=== PATIENT | female | born 1990 | race Caucasian/White ===

== ENCOUNTER 2018-08-24 14:41 | Emergency (ER) | payer OTHER, BC ==
[~2018-08-24] VITALS: Ht 152.4 cm; Wt 84.4 kg
--- OUTSIDE RECORDS SUMMARY | 2018-08-24 14:48 | XMS REPORT | Continuity of Care Document ---
Author Organization Unknown Address Unknown Allergies Active Description Code Type Severity Reaction Onset Reported/Identified Relationship to Patient Clinical Status Yes NO KNOWN DRUG ALLERGIES UNKNOWN NO KNOWN DRUG ALLERG Medications There is no data. Problems Date Dx Coded Attending Type Code Diagnosis Diagnosed By 12/23/2016 Cinda Deng W 272.4 OTHER AND UNSPECIFIED HYPERLIPIDEMIA 12/23/2016 Ish, Cinda W E78.5 HYPERLIPIDEMIA, UNSPECIFIED 12/23/2016 Ish, Cinda W 272.4 OTHER AND UNSPECIFIED HYPERLIPIDEMIA 12/23/2016 Ish, Cinda W E78.5 HYPERLIPIDEMIA, UNSPECIFIED 06/04/2017 Ish, Cinda W 256.4 POLYCYSTIC OVARIES 06/04/2017 Ish, Cinda W 272.4 OTHER AND UNSPECIFIED HYPERLIPIDEMIA 06/04/2017 Ish, Cinda W E28.2 POLYCYSTIC OVARIAN SYNDROME 06/04/2017 Ish, Cinda W E78.5 HYPERLIPIDEMIA, UNSPECIFIED 06/04/2017 Ish, Cinda W 256.4 POLYCYSTIC OVARIES 06/04/2017 Ish, Cnida W 272.4 OTHER AND UNSPECIFIED HYPERLIPIDEMIA 06/04/2017 Ish, Cinda W E28.2 POLYCYSTIC OVARIAN SYNDROME 06/04/2017 Ish, Cinda W E78.5 HYPERLIPIDEMIA, UNSPECIFIED 12/09/2017 Ish, Cinda W 272.4 OTHER AND UNSPECIFIED HYPERLIPIDEMIA 12/09/2017 Ish, Cinda W E78.5 HYPERLIPIDEMIA, UNSPECIFIED 12/09/2017 Ish, Cinda W 272.4 OTHER AND UNSPECIFIED HYPERLIPIDEMIA 12/09/2017 Ish, Cinda W E78.5 HYPERLIPIDEMIA, UNSPECIFIED Procedures There is no data. Results Test Result Range Comprehensive Metabolic Panel - 03/10/16 13:40 Albumin 4.3 g/dL 3.6-5.1 ALP 81 U/L 35-130 ALT 20 U/L 6-45 Anion Gap 19 6-14 AST 12 U/L 2-40 BUN 7 mg/dL 5-25 Calcium 9.6 mg/dL 8.3-10.4 Chloride 105 mmol/L 95-114 CO2 21 mEq/L 22-33 Creat 1.06 mg/dL 0.50-1.50 eGFR 62 mL/min/1.73m2 >59 Globulin 3.0 g/dL 2.3-3.5 Glucose 96 mg/dL 70-110 Osmo 291 280-295 Potassium 3.4 mmol/L 3.5-5.3 Sodium 142 mmol/L 134-148 TBil 0.6 mg/dL 0.2-1.2 TP 7.3 g/dL 6.0-8.3 Thyroid Stimulating Hormone - 03/10/16 13:40 TSH 3.18 mIU/mL 0.32-5.00 Urine Culture - 03/10/16 13:40 PRELIM CULTURE RESULTS 50,000-100,000 Coag Negative [id number] Further Workup Done MEDIA PLATED Setup at 14:21 on 03/10/2016 CULTURE SOURCE void CBC with Auto Diff - 03/18/16 15:53 Baso% 0.40 % 0.00-2.50 Eos 0.2 K/uL 0.0-0.7 Eos% 1.1 % 0.0-7.0 Hct 43.4 % 36.0-46.0 Hgb 14.3 g/dL 13.0-15.0 Lym 3.43 K/uL 0.60-3.40 Lym% 24.8 % 10.0-50.0 MCH 29.7 pg 27.0-31.0 MCHC 32.9 g/dL 32.0-36.0 MCV 90.2 fL 80.0-97.0 [place]% 5.4 % 0.0-12.0 MPV 9.4 fL 7.4-10.0 Amelia% 68.3 % 37.0-80.0 Plt 315 K/uL 150-400 RBC 4.81 M/uL 3.60-5.00 RDW 13.8 % 11.6-14.8 WBC 13.85 K/uL 5.00-10.00 Amelia 9.47 K/uL 2.00-6.90 [place] 0.8 K/uL 0.0-0.9 Baso 0.1 K/uL 0.0-0.2 Comprehensive Metabolic Panel - 12/23/16 11:17 Albumin 3.8 g/dL 3.6-5.1 ALP 87 U/L 35-130 ALT 19 U/L 6-45 Anion Gap 19 6-14 AST 15 U/L 2-40 BUN 7 mg/dL 5-25 Calcium 9.3 mg/dL 8.3-10.4 Chloride 106 mmol/L 95-114 CO2 20 mEq/L 22-33 Creat 0.80 mg/dL 0.50-1.50 eGFR 85 mL/min/1.73m2 >59 Globulin 2.5 g/dL 2.3-3.5 Glucose 86 mg/dL 70-110 Osmo 289 280-295 Potassium 3.6 mmol/L 3.5-5.3 Sodium 141 mmol/L 134-148 TBil 0.4 mg/dL 0.2-1.2 TP 6.3 g/dL 6.0-8.3 Thyroid Stimulating Hormone - 06/04/17 11:07 TSH 2.08 mIU/mL 0.32-5.00 Lipid Panel - 09/07/17 11:38 C/HDL 5.7 3.7-6.7 Cholesterol 232 mg/dL 100-240 HDL 41 mg/dL 30-85 LDL-Calculated 157 mg/dL 0-100 Trig 171 mg/dL 35-160 VLDL 34 mg/dL 0-42 Comprehensive Metabolic Panel - 12/09/17 10:41 Albumin 3.8 g/dL 3.6-5.1 ALP 99 U/L 35-130 ALT 30 U/L 6-45 Anion Gap 14 6-14 AST 23 U/L 2-40 BUN 12 mg/dL 5-25 Calcium 9.2 mg/dL 8.3-10.4 Chloride 107 mmol/L 95-114 CO2 22 mEq/L 22-33 Creat 0.82 mg/dL 0.50-1.50 eGFR 82 mL/min/1.73m2 >59 Globulin 3.1 g/dL 2.3-3.5 Glucose 102 mg/dL 70-110 Osmo 287 280-295 Potassium 4.2 mmol/L 3.5-5.3 Sodium 139 mmol/L 134-148 TBil 0.4 mg/dL 0.2-1.2 TP 6.9 g/dL 6.0-8.3 Lipid Panel - 12/09/17 10:41 C/HDL 4.0 3.7-6.7 Cholesterol 176 mg/dL 100-240 HDL 44 mg/dL 30-85 LDL-Calculated 104 mg/dL 0-100 Trig 141 mg/dL 35-160 VLDL 28 mg/dL 0-42 Comprehensive Metabolic Panel - 06/09/18 09:46 Albumin 4.0 g/dL 3.6-5.1 ALP 109 U/L 35-130 ALT 25 U/L 6-45 Anion Gap 15 6-14 AST 16 U/L 2-40 BUN 8 mg/dL 5-25 Calcium 9.5 mg/dL 8.3-10.4 Chloride 106 mmol/L 95-114 CO2 21 mEq/L 22-33 Creat 0.88 mg/dL 0.50-1.50 eGFR 76 mL/min/1.73m2 >59 Globulin 3.4 g/dL 2.3-3.5 Glucose 92 mg/dL 70-110 Osmo 285 280-295 Potassium 3.4 mmol/L 3.5-5.3 Sodium 139 mmol/L 134-148 TBil 0.4 mg/dL 0.2-1.2 TP 7.4 g/dL 6.0-8.3 Encounters ACCT No. Visit Date/Time Discharge Status Pt. Type Provider Facility Loc./Unit Complaint [id number] 06/09/2018 09:43:00 06/09/2018 23:59:[place] [facility] Deng [id number] 12/09/2017 10:32:00 12/09/2017 23:59:[place] [facility] [place] Rashid [id number] 09/07/2017 09:59:00 09/07/2017 23:59:00 [facility] Cinda Deng [id number] 06/04/2017 11:04:00 06/04/2017 23:59:[place] [facility] [place] Deng [id number] 12/23/2016 10:43:00 12/23/2016 23:59:00 [facility] [place] Deng [id number] 03/18/2016 15:50:00 03/18/2016 23:59:00 [facility] Cinda Deng [id number] 03/10/2016 13:36:00 03/10/2016 23:59:00 [facility] [place] C[place] Deng
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
[2018-08-24] MEDS ORDERED: TETANUS,DIPTH,PERTUSS P/F (BOOSTRIX) 0.5 ML VIAL IM ONE (15:00)
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
[2018-08-24 15:47] VITALS: BP 140/104
== END 2018-08-24 15:47 | disposition home or self-care (01) ==
LOC: EDUNIT# 14:41 → ER 14:44
DX: S40.811A Abrasion of right upper arm, initial encounter (principal); M79.621 Pain in right upper arm; E11.9 Type 2 diabetes mellitus without complications; J45.909 Unspecified asthma, uncomplicated; E78.00 Pure hypercholesterolemia, unspecified; F41.9 Anxiety disorder, unspecified; F32.9 Major depressive disorder, single episode, unspecified; Z23 Encounter for immunization; V47.6XXA Car passenger injured in collision with fixed or stationary object in traffic accident, initial encounter
CPT/HCPCS: 71045; 73030; 73060; 90471; 90715

== ENCOUNTER 2020-04-18 05:41 | Outpatient (RCR) | payer BC ==
[~2020-04-18] VITALS: Ht 152.4 cm; Wt 89.5 kg
[~2020-04-18 05:41] MED LIST: FEXO-46 PO; FLUO20CA46 PO; NORE-71 PO
== END 2020-04-19 09:55 | disposition home or self-care (01) ==
LOC: PREOP 05:41
PROVIDERS: ATTEND Specialist
DX: Z01.812 Encounter for preprocedural laboratory examination (principal); Z20.822 Contact with and (suspected) exposure to COVID-19
CPT/HCPCS: 87635

== ENCOUNTER 2020-04-20 09:42 | Day surgery (SDC) | payer BC, OTHER ==
[~2020-04-20] VITALS: Ht 152 cm; Wt 89.5 kg
[2020-04-20] MEDS ORDERED: LIDOCAINE PF 1% 2 ML VIAL IR PRN (10:00)
[2020-04-20] MEDS ORDERED: MOXIFLOXACIN OPHTH SOLN 5 MG/ML 0.3 ML SYRINGE OP ONE (10:00)
[2020-04-20] MEDS ORDERED: TIMOLOL MALEATE 0.5% 5 ML (TIMOPTIC) BTL OU PRN (10:00)
[2020-04-20] MEDS ORDERED: POVIDONE (BETADINE) OPHTH SOLN 5% 30 ML OP ONE (10:00)
[2020-04-20] MEDS: TETRACAINE 0.5% OPHTH SOLN 4 ML BTL (SINGLE DOSE ONLY) OU PRN ×4 (10:18→10:36)
[2020-04-20] MEDS: PHENYLEPHRINE 10% OPHTH (NEO-SYN) 5 ML BTL OU SCH ×3 (10:25→10:36)
[2020-04-20] MEDS: TROPICAMIDE 1% OPH SOLN (MYDRIACYL) 15 ML BTL OP SCH ×3 (10:25→10:36)
[2020-04-20 10:26] VITALS: BP 134/97
[2020-04-20] MEDS ORDERED: MIDAZOLAM 2 MG/2 ML (VERSED) VIAL ONE (10:33)
--- NOTE | 2020-04-20 10:50 | Ophthalmologist Pre-Op Note ---
Pre-Operative Progress Note H&P Reviewed The H&P was reviewed, patient examined and no changes noted. Date H&P Reviewed: Apr 20, 2020 Time H&P Reviewed: 10:50 Pre-Op Dx Cataract, Right Eye CHANDANA COCHRAN MD Apr 20, 2020 10:50
--- NOTE | 2020-04-20 11:10 | Ophthalmology Operative Report ---
Cataract removal/placement IOL PREOPERATIVE DIAGNOSIS: Cataract Right Eye POSTOPERATIVE DIAGNOSIS: Cataract Right Eye PROCEDURE: Cataract removal and placement of posterior chamber implant, right eye SURGEON: Davide Cochran ANESTHESIA: Topical with sedation COMPLICATIONS: None ESTIMATED BLOOD LOSS: Minimal DESCRIPTION OF PROCEDURE: After proper informed consent was obtained, the patient, a 29 female, was taken to the Operating Room and the right eye was anesthetized with tetracaine. The right eye was then prepped and draped in the usual manner. A wire lid speculum was placed. A paracentesis was made at the left hand position. Preservative free lidocaine was injected into the anterior chamber followed by viscoelastic. A clear corneal incision was made in the temporal position. A capsulorrhexis was preformed and the central nuclear and cortical material were removed. The posterior capsule was polished and Lázaro 24.5 AU00T0 IOL was placed into the capsular bag. The residual viscoelastic was aspirated and balanced saline solution was injected into the anterior chamber. Moxifloxacin was injected into the anterior chamber. The wound was checked and found to be water tight. The patient tolerated the procedure well without complications. DAVIDE COCHRAN MD Apr 20, 2020 11:10
[2020-04-20 11:19] VITALS: BP 133/96
[2020-04-20] MEDS ORDERED: acetaZOLAMIDE ER 500 MG CAP (DIAMOX SEQUELS) PO ONE (11:30)
--- NOTE | 2020-04-20 15:32 | Anesthesia-General Post-Op ---
MAC Patient Condition Mental Status/LOC: Same as Preop Cardiovascular: Satisfactory Nausea/Vomiting: Absent Respiratory: Satisfactory Pain: Controlled Complications: Absent Post Op Complications Complications None Follow Up Care/Instructions Patient Instructions None needed. Anesthesiology Discharge Order Discharge Order Patient was seen after the procedure and she was doing well, no complaints, stable vital signs, no apparent adverse anesthesia problems. ARIANA DAVIS DO Apr 20, 2020 15:32
== END 2020-04-20 11:21 ==
LOC: SDC 09:42
PROVIDERS: ATTEND Specialist
DX: E11.36 Type 2 diabetes mellitus with diabetic cataract (principal); H25.11 Age-related nuclear cataract, right eye; J45.909 Unspecified asthma, uncomplicated; Z79.899 Other long term (current) drug therapy
CPT/HCPCS: 66984; 84703; V2632

== ENCOUNTER 2020-04-25 05:40 | Outpatient (RCR) | payer BC | END 2020-04-25 11:24 | disposition home or self-care (01) | LOC: PREOP 05:40 | PROVIDERS: ATTEND Specialist | DX: Z01.812 Encounter for preprocedural laboratory examination (principal); Z20.822 Contact with and (suspected) exposure to COVID-19 | CPT/HCPCS: 87635 ==

== ENCOUNTER 2020-04-27 08:20 | Day surgery (SDC) | payer BC ==
[~2020-04-27] VITALS: Ht 152 cm; Wt 89.5 kg
[2020-04-27 08:30] VITALS: BP 142/93
[2020-04-27] MEDS ORDERED: LIDOCAINE PF 1% 2 ML VIAL IR PRN (08:30)
[2020-04-27] MEDS ORDERED: POVIDONE (BETADINE) OPHTH SOLN 5% 30 ML OP ONE (08:30)
[2020-04-27] MEDS ORDERED: MOXIFLOXACIN OPHTH SOLN 5 MG/ML 0.3 ML SYRINGE OP ONE (08:30)
[2020-04-27] MEDS ORDERED: TIMOLOL MALEATE 0.5% 5 ML (TIMOPTIC) BTL OU PRN (08:30)
[2020-04-27] MEDS: TETRACAINE 0.5% OPHTH SOLN 4 ML BTL (SINGLE DOSE ONLY) OU PRN ×4 (08:32→08:52)
[2020-04-27] MEDS: PHENYLEPHRINE 10% OPHTH (NEO-SYN) 5 ML BTL OU SCH ×3 (08:41→08:52)
[2020-04-27] MEDS: TROPICAMIDE 1% OPH SOLN (MYDRIACYL) 15 ML BTL OP SCH ×3 (08:42→08:52)
--- NOTE | 2020-04-27 09:01 | Ophthalmologist Pre-Op Note ---
Pre-Operative Progress Note H&P Reviewed The H&P was reviewed, patient examined and no changes noted. Date H&P Reviewed: Apr 27, 2020 Time H&P Reviewed: 09:01 Pre-Op Dx Cataract, Left Eye CHANDANA COCHRAN MD Apr 27, 2020 09:01
[2020-04-27] MEDS ORDERED: MIDAZOLAM 2 MG/2 ML (VERSED) VIAL ONE (09:02)
--- NOTE | 2020-04-27 09:23 | Ophthalmology Operative Report ---
Cataract removal/placement IOL PREOPERATIVE DIAGNOSIS: Cataract Left Eye POSTOPERATIVE DIAGNOSIS: Cataract Left Eye PROCEDURE: Cataract removal and placement of posterior chamber implant, left eye SURGEON: Davide Cochran ANESTHESIA: Topical with sedation COMPLICATIONS: None ESTIMATED BLOOD LOSS: Minimal DESCRIPTION OF PROCEDURE: After proper informed consent was obtained, the patient, a 29 female, was taken to the Operating Room and the left eye was anesthetized with tetracaine. The left eye was then prepped and draped in the usual manner. A wire lid speculum was placed. A paracentesis was made at the left hand position. Preservative free lidocaine was injected into the anterior chamber followed by viscoelastic. A clear corneal incision was made in the temporal position. A capsulorrhexis was preformed and the central nuclear and cortical material were removed. The posterior capsule was polished and an Lázaro 25.5 AU00T0 was placed into the capsular bag. The residual viscoelastic was aspirated and balanced saline solution was injected into the anterior chamber. Moxifloxacin was injected into the anterior chamber. The wound was checked and found to be water tight. The patient tolerated the procedure well without complications. DAVIDE COCHRAN MD Apr 27, 2020 09:23
[2020-04-27 09:30] VITALS: BP 124/88
[2020-04-27] MEDS ORDERED: acetaZOLAMIDE ER 500 MG CAP (DIAMOX SEQUELS) PO ONE (10:00)
--- NOTE | 2020-04-27 13:07 | Anesthesia-General Post-Op ---
MAC Patient Condition Mental Status/LOC: Same as Preop Cardiovascular: Satisfactory Nausea/Vomiting: Absent Respiratory: Satisfactory Pain: Controlled Complications: Absent Post Op Complications Complications None Follow Up Care/Instructions Patient Instructions None needed. Anesthesiology Discharge Order Discharge Order Patient was seen this morning after the procedure and she was doing well, no complaints, stable vital signs, no apparent adverse anesthesia problems. ARIANA DAVIS DO Apr 27, 2020 13:07
== END 2020-04-27 09:30 | disposition home or self-care (01) ==
LOC: SDC 08:20
PROVIDERS: ATTEND Specialist
DX: H25.12 Age-related nuclear cataract, left eye (principal); J45.909 Unspecified asthma, uncomplicated; E66.9 Obesity, unspecified; Z68.38 Body mass index [BMI] 38.0-38.9, adult; Z79.899 Other long term (current) drug therapy
CPT/HCPCS: 66984; 84703; V2632

== ENCOUNTER → 2020-08-24 | Outpatient (CLI) | payer BC ==
[2020-08-24 13:01] LABS: BASOPHILS # (AUTO) 0.1 10^3/uL (0.0-0.1); BASOPHILS % (AUTO) 1 % (0-10); EOSINOPHILS # (AUTO) 0.1 10^3/uL (0.0-0.3); EOSINOPHILS % (AUTO) 1 % (0-10); HEMATOCRIT 46 % (35-52); HEMOGLOBIN 15.1 g/dL (11.5-16.0); LYMPHOCYTES # (AUTO) 3.7 10^3/uL (1.0-4.0); LYMPHOCYTES % (AUTO) 35 % (12-44); MEAN CORPUSCULAR HEMOGLOBIN 30 pg (25-34); MEAN CORPUSCULAR HGB CONC 33 g/dL (32-36); MEAN CORPUSCULAR VOLUME 89 fL (80-99); MEAN PLATELET VOLUME 8.7 fL (9.0-12.2); MONOCYTES # (AUTO) 0.4 10^3/uL (0.0-1.0); MONOCYTES % (AUTO) 4 % (0-12); NEUTROPHILS # (AUTO) 6.3 10^3/uL (1.8-7.8); NEUTROPHILS % (AUTO) 59 % (42-75); PLATELET COUNT 374 10^3/uL (130-400); WHITE BLOOD COUNT 10.6 10^3/uL (4.3-11.0)
[2020-08-24 13:27] LABS: ALANINE AMINOTRANSFERASE 21 U/L (0-55); ALBUMIN 3.7 GM/DL (3.2-4.5); ALKALINE PHOSPHATASE 93 U/L (40-136); BILIRUBIN,TOTAL 0.4 MG/DL (0.1-1.0); BUN/CREATININE RATIO 13; CALCIUM 9.1 MG/DL (8.5-10.1); CARBON DIOXIDE 19 MMOL/L (21-32); CHLORIDE 107 MMOL/L (98-107); CHOLESTEROL 199 MG/DL (< 200); CREATININE SERUM 0.89 MG/DL (0.60-1.30); GFR ESTIMATED > 60; GLUCOSE 89 MG/DL (70-105); HDL CHOLESTEROL 39 MG/DL (40-60); POTASSIUM 3.5 MMOL/L (3.6-5.0); SODIUM 139 MMOL/L (135-145); TRIGLYCERIDES 147 MG/DL (<150); VLDL CHOLESTEROL 29 MG/DL (5-40)
== END ==
LOC: LAB 12:43
PROVIDERS: ATTEND Nurse Practitioner Family
DX: E11.9 Type 2 diabetes mellitus without complications (principal)
CPT/HCPCS: 36415; 80053; 80061; 84443; 85025

== ENCOUNTER → 2021-11-05 | Outpatient (CLI) | payer BC ==
[~2021-11-05] VITALS: Ht 152.4 cm; Wt 79.8 kg
[~2021-11-05] MED LIST changes: +CANA100T PO; -FEXO-46 PO; -FLUO20CA46 PO; +FLUO20CA48 PO; +NF-ALLE180 PO; +VITA-203 PO
== END ==
LOC: PREOP 05:27
PROVIDERS: ATTEND Obstetrics & Gynecology
DX: Z01.818 Encounter for other preprocedural examination (principal); N89.8 Other specified noninflammatory disorders of vagina

== ENCOUNTER 2021-11-11 07:27 | Day surgery (SDC) | payer BC ==
[~2021-11-11] VITALS: Ht 152 cm; Wt 79.8 kg
[2021-11-11] VITALS (10 sets, daily range): BP systolic 124–142; BP diastolic 84–98
[2021-11-11] MEDS ORDERED: LACTATED RINGERS 1,000 ML IV PRN (07:30)
[2021-11-11] MEDS ORDERED: BUPIVACAINE 0.25% 30 ML (SENSORCAINE) VIAL ONE (07:52)
[2021-11-11 08:10] LABS: BASOPHILS # (AUTO) 0.1 10^3/uL (0.0-0.1); BASOPHILS % (AUTO) 0 % (0-10); EOSINOPHILS # (AUTO) 0.2 10^3/uL (0.0-0.3); EOSINOPHILS % (AUTO) 1 % (0-10); HEMATOCRIT 45 % (35-52); HEMOGLOBIN 14.9 g/dL (11.5-16.0); LYMPHOCYTES # (AUTO) 4.4 10^3/uL (1.0-4.0); LYMPHOCYTES % (AUTO) 36 % (12-44); MEAN CORPUSCULAR HEMOGLOBIN 30 pg (25-34); MEAN CORPUSCULAR HGB CONC 33 g/dL (32-36); MEAN CORPUSCULAR VOLUME 90 fL (80-99); MEAN PLATELET VOLUME 9.1 fL (9.0-12.2); MONOCYTES # (AUTO) 0.6 10^3/uL (0.0-1.0); MONOCYTES % (AUTO) 5 % (0-12); NEUTROPHILS # (AUTO) 6.9 10^3/uL (1.8-7.8); NEUTROPHILS % (AUTO) 57 % (42-75); PLATELET COUNT 342 10^3/uL (130-400); WHITE BLOOD COUNT 12.1 10^3/uL (4.3-11.0)
[2021-11-11] MEDS ORDERED: fentaNYL INJ 100 MCG/2 ML AMP ONE (08:34)
[2021-11-11] MEDS ORDERED: MIDAZOLAM 2 MG/2 ML (VERSED) VIAL ONE (08:34)
[2021-11-11] MEDS ORDERED: LIDOCAINE PF 2% 5 ML (XYLOCAINE) VIAL ONE (08:34)
[2021-11-11] MEDS ORDERED: proPOfol 200 MG/20 ML (DIPRIVAN) VIAL IV ONE (08:34)
[2021-11-11] MEDS ORDERED: ONDANSETRON 4 MG/2 ML (SDV) Z0FRAN ONE (08:34)
--- NOTE | 2021-11-11 08:40 | Discharge Inst-Women's Service ---
Discharge Inst-Women's Serv Consults/Follow Up Orders/Referrals Dr. Coronado in 6 weeks Activity Activity: Activity as Tolerated Driving Instructions: You May Drive NO SMOKING: NO SMOKING Nothing Inside Vagina: No Douching, No [place], No Tampons Diet Discharge Diet: No Restrictions Symptoms to Report to : Bleeding Excessive, Pain Increased, Fever Over 101 Degrees F, Vaginal Bleeding Increase, Questions/Concerns For Any Problems or Questions: Contact Your Physician THOMAS CORONADO DO Nov 11, 2021 08:40
[2021-11-11] MEDS ORDERED: HYDROcodone/APAP 5 MG/325 MG (LORTAB) TAB PO PRN (08:45)
[2021-11-11] MEDS ORDERED: KETOROLAC 30 MG/ML VIAL IVP ONE (08:45)
[2021-11-11] MEDS ORDERED: D5 LR IV SOLUTION 1,000 ML IV SCH (08:45)
[2021-11-11] MEDS ORDERED: ONDANSETRON 4 MG/2 ML (SDV) Z0FRAN IVP PRN ×2 (08:45→09:45)
[2021-11-11] MEDS ORDERED: VASOPRESSIN INJECTION 20 UNIT/ML VIAL ONE (09:02)
[2021-11-11] MEDS ORDERED: NS (IVPB) 100 ML ONE (09:02)
[2021-11-11] MEDS ORDERED: SEVOFLURANE (ULTANE) 15 ML INHAL SOLN ONE (09:22)
--- NOTE | 2021-11-11 09:36 | Anesthesia-General Post-Op ---
General Patient Condition Mental Status/LOC: Same as Preop Cardiovascular: Satisfactory Nausea/Vomiting: Absent Respiratory: Satisfactory Pain: Controlled Complications: Absent Post Op Complications Complications None Follow Up Care/Instructions Patient Instructions None needed. Anesthesia/Patient Condition Patient Condition Patient is doing well, no complaints, stable vital signs, no apparent adverse anesthesia problems. No complications reported per nursing. ADÁN LLOYD CRNA Nov 11, 2021 09:36
[2021-11-11] MEDS ORDERED: fentaNYL INJ 100 MCG/2 ML AMP IVP ONE (09:45)
--- NOTE | 2021-11-11 12:26 | OPERATIVE REPORT ---
DATE OF SERVICE: 11/11/2021 PREOPERATIVE DIAGNOSES: A 30-year-old female with intolerance of pelvic examination and vaginal examination, pain with placement of anything within the vagina including tampons, redundant hymenal tissue. POSTOPERATIVE DIAGNOSES: A 30-year-old female with intolerance of pelvic examination and vaginal examination, pain with placement of anything within the vagina including tampons, redundant hymenal tissue and vaginal septum. SURGEON: Meir Mack DO ANESTHESIA: LMA general. ESTIMATED BLOOD LOSS: Minimal. URINE OUTPUT: 50 mL drained at the end of the procedure. FLUIDS: 800 mL lactated Ringer's solution. FINDINGS: A very narrow vaginal introitus with hymenal ring approximately open to about 6 mm with grossly normal-appearing vaginal mucosa. Separation of the cervical tissue at the midline consistent with potential vaginal septum and uterine didelphys. SPECIMEN SENT: Pap smear. INDICATIONS FOR PROCEDURE: This 30-year-old female is a patient that sought care in my office, after multiple primary care providers are unable to do pelvic examination due to discomfort. Upon evaluation in the office, the hymen is a very narrow opening, cannot even allow passage of my pinky finger through the hymen without causing discomfort. Therefore, I discussed with the patient do an examination under anesthesia and revising that hymen so that we can allow for pelvic examinations in the future. Risk of the procedure were discussed with the patient and her mom in detail. After all of her questions were answered, consent was obtained, the patient was taken to the operating room. OPERATIVE REPORT IN DETAIL: Once in the operating room, anesthesia was found to be adequate, placed in dorsal lithotomy position, prepped and draped in normal sterile fashion. Timeout was performed. I am unable to pass anything past the hymen at the initial evaluation. Therefore, I began by infiltrating the margins of the hymenal ring using vasopressin and make an incision down to the hymenal ring, excising the hymen from approximately 4 o'clock to 8 o'clock on the hymen itself. This entire portion of the hymen was then resected down to the submucosa. I then reapproximate in a longitudinal fashion, allowing for more wider opening using 3-0 Vicryl suture in interrupted fashion, after which there was no active bleeding noted from hymenal resection plane. I then am able to insert a vaginal speculum and visualize what appears to be two separate cervixes with a septum at the midline. I am able to collect cytology of this area using Pap smear brush, at which point I removed the speculum. There was no active bleeding noted from any of my dissection planes or the hymen itself. The patient tolerated the procedure well and sent to recovery in stable condition. Lap and sponge counts were correct at the end of the procedure. Instrument counts correct as well. Job ID: [id number] DocumentID: [id number] Dictated Date: 11/11/2021 09:41:07 Supervisor Order Takers Date: 11/11/2021 12:26:07 Dictated By: DO MATILDE MOORE
== END 2021-11-11 11:41 | disposition home or self-care (01) ==
LOC: SDC 07:27
PROVIDERS: ATTEND Obstetrics & Gynecology
DX: Q52.3 Imperforate hymen (principal); E66.9 Obesity, unspecified; Z68.34 Body mass index [BMI] 34.0-34.9, adult
CPT/HCPCS: 36415; 84703; 85025; 86850; 86900; 86901; 87081

== ENCOUNTER → 2022-03-04 | Outpatient (CLI) | payer BC ==
[~2022-03-04] MED LIST changes: +GADOTERATE 0.5 MMOL/ML (CLARISCAN) 15 ML VIAL IV ONE
--- NOTE | 2022-03-05 08:41 | Diagnostic Imaging Report ---
EXAMINATION: MRI of the pelvis without and with contrast. COMPARISON: None HISTORY: Congenital pelvic anomalies TECHNIQUE: Multiplanar, multisequence MRI of the pelvis was performed before and after the intravenous administration of IV contrast. FINDINGS: The uterus is anteverted measuring 7.5 x 2.4 x 4.7 cm. There are findings of complete septation of the uterus with 2 distinct endometrial cavities and 2 cervical canals. The junctional zone is normal. The myometrium is unremarkable. Normal low signal cervical stroma. The vagina is nondistended which limits evaluation, particularly for vaginal septum. The ovaries are normal in size. There is no adnexal mass. The urinary bladder is normal. 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 Otherwise unremarkable pelvic MRI. Dictated by: Dictated on workstation # [id number]
== END ==
LOC: RAD 13:42
PROVIDERS: ATTEND Obstetrics & Gynecology
DX: Q51.9 Congenital malformation of uterus and cervix, unspecified (principal)
CPT/HCPCS: 72197